=== PATIENT | male | born 1960 | race Caucasian/White ===

== ENCOUNTER 2021-01-08 16:31 | Outpatient (CLI) | payer MEDICAID ==
[2021-01-08 17:08] LABS: INR 1.1 (0.8-1.2); PT - PROTHROMBIN TIME 12.3 secs (9.9-12.6)
[2021-01-08 17:15] LABS: PARTIAL THROMBOPLASTIN TIME 30.4 secs (24.9-33.3)
[2021-01-08 17:21] LABS: ALBUMIN 4.7 g/dL (3.2-5.5); ALBUMIN/GLOBULIN RATIO 1.9 (1.0-2.2); BILIRUBIN,TOTAL 0.3 mg/dL (0.2-1.0); TOTAL PROTEIN 7.2 g/dL (6.7-8.2)
[2021-01-08 20:53] LABS: ESTIMATED AVERAGE GLUCOSE 148 mg/dL (70-100); HEMOGLOBIN A1c% 6.8 % (4.27-6.07)
[2021-01-09 11:08] LABS: HEPATITIS C ANTIBODY NON-REACTIVE (NON-REACTIVE)
[2021-01-09 15:31] LABS: HIV AG/AB 4TH GEN NON-REACTIVE (NON-REACTIVE)
== END 2021-01-08 16:32 | disposition home or self-care (01) ==
LOC: LAB 16:31
PROVIDERS: ATTEND Psychiatry & Neurology Sleep Medicine
DX: E61.1 Iron deficiency (principal); Z11.3 Encounter for screening for infections with a predominantly sexual mode of transmission; E13.9 Other specified diabetes mellitus without complications; D68.9 Coagulation defect, unspecified
CPT/HCPCS: 36415; 80053; 82728; 83036; 83540; 84466; 85610; 85730; 86592; 86803; 87389